=== PATIENT | female | born 1960 | race Caucasian/White ===

== ENCOUNTER 2022-05-24 04:27 | Day surgery (SDC) | payer OTHER ==
[2022-05-17 15:10] VITALS: BMI 30.2
[2022-05-24 10:56] VITALS: TEMP 98
[2022-05-24 12:01] VITALS: BP 97/44; PULSE 67
== END 2022-05-24 12:15 | disposition home or self-care (01) ==
LOC: JASU-ENDO 04:27
PROVIDERS: ATTEND Internal Medicine Gastroenterology
PROC: 0DJD8ZZ Inspection of Lower Intestinal Tract, Via Natural or Artificial Opening Endoscopic (ICD-10-PCS; principal; 2022-05-24 10:45)
DX: Z12.11 Encounter for screening for malignant neoplasm of colon (principal); Z80.0 Family history of malignant neoplasm of digestive organs